=== PATIENT | female | born 2000 | race Caucasian/White ===

== ENCOUNTER 2021-04-10 17:30 | Emergency (ER) | payer BC ==
--- NOTE | 2021-04-10 18:27 | EDM.PDOC ---
ED HPI GENERAL MEDICAL PROBLEM - General Chief Complaint: Abdominal Pain Stated Complaint: STOMACH CRAMPS Time Seen by Provider: 04/10/21 17:40 Source of Information: Reports: Patient History Limitations: Reports: No Limitations - History of Present Illness INITIAL COMMENTS - FREE TEXT/NARRATIVE: Vaginal bleeding that started 2 days ago. Patient states that it should have started that the first of the month but it did not she took 1 test which was negative and one that was positive. She states she has not taken anything since the start of the bleeding. She wanted to make sure she was not she rates pain about a 5 out of 10 and it is much better today than it was yesterday. She has not had any prior issues with vaginal bleeding. She has no other co mplaints at this time Duration: Day(s): Quality: Reports: Pressure Improves with: Reports: Other (time ) Associated Symptoms: Reports: No Other Symptoms Lower Pelvic Pain Score (Numeric/FACES): 5 - Related Data Allergies Allergy/AdvReac Type Severity Reaction Status Date / Time Penicillins Allergy Vomiting Verified 04/10/21 18:03 Home Meds: Home Meds . [No Known Home Meds] 04/10/21 [History] Past Medical History - Past Health History Medical/Surgical History: Denies Medical/Surgical History Social & Family History - Tobacco Use Tobacco Use Status *Q: Never Tobacco User ED ROS GENERAL - Review of Systems Review Of Systems: See Below Constitutional: Reports: No Symptoms HEENT: Reports: No Symptoms Respiratory: Reports: No Symptoms Cardiovascular: Reports: No Symptoms Endocrine: Reports: No Symptoms GI/Abdominal: Reports: No Symptoms, Other (Lower pelvic vaginal pain cramping) : Reports: No Symptoms Musculoskeletal: Reports: No Symptoms Skin: Reports: No Symptoms Neurological: Reports: No Symptoms Psychiatric: Reports: No Symptoms Hematologic/Lymphatic: Reports: No Symptoms Immunologic: Reports: No Symptoms ED EXAM, GI/ABD - Physical Exam Exam: See Below Exam Limited By: No Limitations General Appearance: Alert, WD/WN, No Apparent Distress Respiratory/Chest: No Respiratory Distress, Lungs Clear, Normal Breath Sounds, No Accessory Muscle Use, Chest Non-Tender Cardiovascular: Normal Peripheral Pulses, Regular Rate, Rhythm, No Edema, No Gallop, No JVD, No Murmur, No Rub GI/Abdominal Exam: Normal Bowel Sounds, Soft, Non-Tender, No Organomegaly, No Distention, No Abnormal Bruit Back Exam: Normal Inspection, Full Range of Motion. No: CVA Tenderness (L), CVA Tenderness (R) Extremities: Normal Inspection, Normal Range of Motion, Non-Tender, No Pedal Edema, Normal Capillary Refill Neurological: Alert, Oriented, CN II-XII Intact, Normal Cognition, Normal Gait, Normal Reflexes, No Motor/Sensory Deficits Psychiatric: Normal Affect, Normal Mood Skin Exam: Warm, Dry, Intact, Normal Color, No Rash Course - Vital Signs Text/Narrative:: Urine hCG was negative last sexual contact with BF 24 march Last Recorded V/S: Last Vital Signs Temp 36.8 C 04/10/21 17:35 Pulse 87 04/10/21 17:35 Resp 16 04/10/21 17:35 BP 122/73 04/10/21 17:35 Pulse Ox 99 04/10/21 17:35 - Orders/Labs/Meds Labs: Laboratory Tests 04/10/21 Range/Units 18:03 Urine HCG, Qual Negative (NEGATIVE) Departure - Departure Time of Disposition: 18:25 Disposition: Home, Self-Care 01 Condition: Good Clinical Impression: Menses painful - Discharge Information *PRESCRIPTION DRUG MONITORING PROGRAM REVIEWED*: No *COPY OF PRESCRIPTION DRUG MONITORING REPORT IN PATIENT DEZ: No Instructions: Menstruation Referrals: PCP,None [Primary Care Provider] - Forms: ED Department Discharge Additional Instructions: Follow-up with your regular care provider in the next 24 to 48 hours You may take [id number] Tylenol or Motrin or naproxen follow directions on the box Return to the emergency room if anything changes or gets worse Sepsis Event Note (ED) - Evaluation Sepsis Screening Result: No Definite Risk - Focused Exam Vital Signs: Vital Signs Temp Pulse Resp BP Pulse Ox 04/10/21 17:35 36.8 C 87 16 122/73 99 - Problem List & Annotations (1) Menses painful SNOMED Code(s): 420435181 Code(s): N94.6 - DYSMENORRHEA, UNSPECIFIED Status: Acute Current Visit: Yes
== END 2021-04-10 18:33 | disposition home or self-care (01) ==
LOC: VM.ED 17:30
DX: N94.6 Dysmenorrhea, unspecified (principal); Z88.0 Allergy status to penicillin
CPT/HCPCS: 81025; 99283; 99284

== ENCOUNTER 2024-08-27 17:50 | Emergency (ER) | payer BC, OTHER ==
[2024-08-27 18:24] LABS: BASOPHILS PERCENT AUTO 0.5 % (0.2-1.2); EOSINOPHILS ABSOLUTE AUTO 0.5 x10^3/uL (0.0-0.5); EOSINOPHILS PERCENT AUTO 6.1 % (0.0-4.0); HEMOGLOBIN 12.5 g/dL (12.0-16.0); IMMATURE GRAN ABSOLUTE AUTO 0.01 x10^3/uL (0.00-0.07); LYMPHOCYTES ABSOLUTE AUTO 2.3 x10^3/uL (1.0-4.8); LYMPHOCYTES PERCENT AUTO 31.8 % (25.0-50.0); MEAN CORPUSCULAR HEMOGLOBIN 29.6 pg (26.0-32.0); MEAN CORPUSCULAR HGB CONC 34.7 g/dL (32.0-36.0); MEAN CORPUSCULAR VOLUME 85.1 fL (78.0-93.0); MONOCYTES ABSOLUTE AUTO 0.7 x10^3/uL (0.0-0.8); MONOCYTES PERCENT AUTO 9.2 % (2.0-11.0); NEUTROPHILS ABSOLUTE AUTO 3.8 x10^3/uL (1.8-7.7); NEUTROPHILS PERCENT AUTO 52.3 % (50.0-80.0); PLATELET COUNT,PLT 285 x10^3/uL (130-400); RED BLOOD CELL COUNT 4.23 x10^6/uL (4.00-5.50); WHITE BLOOD CELL COUNT,WBC 7.4 x10^3/uL (4.0-10.0)
[2024-08-27 18:28] LABS: APPEARANCE,URINE CLEAR (CLEAR); BILIRUBIN,URINE NEGATIVE (NEGATIVE); COLOR,URINE YELLOW (YELLOW); GLUCOSE,URINE NEGATIVE (NEGATIVE); KETONES,URINE NEGATIVE (NEGATIVE); LEUKOCYTE ESTERASE,URINE NEGATIVE (NEGATIVE); NITRITE,URINE NEGATIVE (NEGATIVE); OCCULT BLOOD,URINE NEGATIVE (NEGATIVE); PROTEIN,URINE NEGATIVE (NEGATIVE); UROBILINOGEN,URINE 0.2 EU/dL (0.2)
[2024-08-27 18:31] LABS: BACTERIA,URINE RARE /HPF (NOT SEEN); MUCUS,URINE FEW /LPF (NOT SEEN); RBC,URINE 0-5 /HPF (NOT SEEN); SQUAMOUS EPITHELIAL CELLS,UR MODERATE /HPF (NOT SEEN); WBC,URINE 0-5 /HPF (NOT SEEN)
[2024-08-27 18:39] LABS: ANION GAP 15.1 mmol/L (5-15); CALCIUM 8.5 mg/dL (8.5-10.1); CREATININE 0.5 mg/dL (0.55-1.02); EST CRCL DRUG DOSING (CG) 135.22 mL/min; POTASSIUM,K 4.1 mmol/L (3.5-5.1)
== END 2024-08-27 19:35 | disposition short-term general hospital (02) ==
LOC: VM.ED 17:50
DX: O99.891 Other specified diseases and conditions complicating pregnancy (principal); Z88.0 Allergy status to penicillin; Z3A.11 11 weeks gestation of pregnancy
CPT/HCPCS: 80048; 81001; 84702; 85025; 99284